=== PATIENT | female | born 1945 | race Caucasian/White ===

== ENCOUNTER 2021-09-28 10:49 | Emergency (ER) | payer OTHER ==
[~2021-09-28] VITALS: Ht 152.4 cm; Wt 52.2 kg
--- NOTE | ~2021-09-28 | EMS ---
[address] [address] EMS Patient Care Report Name: CRISTINA BUNCH Room #: DEP MICHAEL Stokes#: [id number] Admission: 09/28/21 Attend Phys: Discharge: 09/28/21 Date of : 41 Report #: [id number] THIS REPORT FOR: //name// Report Transmitted: 10/02/2021 14:26 EMS Care Summary [place], [place]/[facility] Incident [id number] @ 09/28/2021 09:56 Incident Location [address] [place], [place] [id number] Patient CRISTINA BUNCH Female, 76 Years 1945 Patient Address [address] [place], [place] [id number] Patient History Hypertension (HTN),Alzheimer's,Hyperglycemia, Patient Allergies No known allergies, Patient Medications Oxybutynin, Venlafaxine, Atorvastatin, Omeprazole, Chief Complaint increased falls and confusion Disposition Transported No Lights/[place] [facility] Reason Falls Transported To [facility] Narrative Initially dispatched for a fall. Upon EMS arrival patient was found laying in her bed, showing no obvious signs of distress, conscious, and alert. Staff [address] [address] EMS Patient Care Report Name: CRISTINA BUNCH Room #: DEP MICHAEL Stokes#: [id number] Admission: 09/28/21 Attend Phys: Discharge: 09/28/21 Date of : 41 Report #: [id number] report that the patient's daughter reported an increase in falls and confusion over the past month and wished to have her evaluated. Patient reported rolling out of bed this morning onto the floor but denied any injury. She was assisted onto the stretcher, secured, and loaded into the ambulance. Patient was transported to [facility] without incident. Full report was given to RN prior to signing this document. Initial Vitals @10:24P: 72,BP: 185/100,SpO2: 99, @10:34P: 81,R: 18,BP: 174/104,GCS: 14,CO: 0,SpO2: 99,Revised Trauma: 12, @10:15P: 76,R: 18,BP: 179/82,Pain: 0/10,GCS: 14,Glucose: 91,CO: 0,SpO2: 100,Revised Trauma: 12, Assessments @10:13MENTAL:Place Oriented,Event Oriented,Person Oriented,Confused,SKIN:No Abnormalities,HEENT:Head/Face: No Abnormalities,Eyes: No Abnormalities,Neck/Airway: No Abnormalities,LUNG SOUNDS:General: No Abnormalities,Left Upper: No Abnormalities,Right Upper: No Abnormalities,Left Lower: No Abnormalities,Right Lower: No Abnormalities,ABDOMEN:General: No Abnormalities,Left Upper: No Abnormalities,Right Upper: No Abnormalities,Left Lower: No Abnormalities,Right Lower: No Abnormalities,PELVIS//GI:No Abnormalities,EXTREMITIES:Left Arm: No Abnormalities,Right Arm: No Abnormalities,Left Leg: No Abnormalities,Right Leg: No Abnormalities,PULSE:NEURO:Weakness Left-Sided,Weakness Right-Sided, Impression Generalized Weakness Procedures @10:13 ALS Assessment Response: UnchangedSucceeded Timeline 09:52,Call Received 09:52,Dispatch Notified 09:56,Dispatched 09:56,En Route 10:10,On Scene 10:13,At Patient 10:13,ALS Assessment,Response: UnchangedSucceeded, 10:15,BP: 179/82 M,PULSE: 76,RR: 18 R,SPO2: 100 Ox,ETCO2: ,B,PAIN: 0,GCS: 14, 10:24,BP: 185/100 M,PULSE: 72,RR: R,SPO2: 99 Ox,ETCO2: ,BG: ,PAIN: ,GCS: , 10:34,Depart Scene 10:34,BP: 174/104 M,PULSE: 81,RR: 18 R,SPO2: 99 Ox,ETCO2: ,BG: ,PAIN: ,GCS: 14, 10:44,At Destination [address] [address] EMS Patient Care Report Name: CRISTINA BUNCH [id number] Admission: 09/28/21 Attend Phys: Discharge: 09/28/21 Date of : 41 Report #: [id number] 10:53,Call Closed Disclaimer [email or web address] Copyright 2021 [employer] This EMS Care Summary contains data elements from the applicable legal record (which may be displayed differently). It is designed to provide pertinent information for the following purposes: continuity of care, clinical quality, and state data reporting. The complete legal record is available to ED staff and administrators of the receiving hospital in [facility] Patient Tracker. All data is provided "as is."
[2021-09-28 13:01] VITALS: BP 164/120
== END 2021-09-28 13:01 ==
LOC: ER 10:49
DX: R53.1 Weakness (principal); F02.80 Dementia in other diseases classified elsewhere, unspecified severity, without behavioral disturbance, psychotic disturbance, mood disturbance, and anxiety; W06.XXXA Fall from bed, initial encounter; Y93.89 Activity, other specified; Y92.89 Other specified places as the place of occurrence of the external cause; Y99.8 Other external cause status